=== PATIENT | female | born 1950 | race Caucasian/White ===

== ENCOUNTER 2018-11-09 17:42 | Emergency (ER) | payer BC, MEDICARE ==
--- NOTE | 2018-11-09 18:23 | EDM.PDOC ---
ED HPI GENERAL MEDICAL PROBLEM - General Chief Complaint: Gastrointestinal Problem Stated Complaint: MEDICAL [facility] Time Seen by Provider: 11/09/18 18:21 Source of Information: Reports: Patient History Limitations: Reports: No Limitations - History of Present Illness INITIAL COMMENTS - FREE TEXT/NARRATIVE: pt arrived by ambulance with marked vertigo and vomiting. She has never experienced this in the past. She does not have a headache. She got up this am with this. Onset: Today, Sudden Duration: Hour(s): Location: Reports: Head Associated Symptoms: Reports: Nausea/Vomiting, Weakness - Related Data Allergies Allergy/AdvReac Type Severity Reaction Status Date / Time gabapentin [From Neurontin] Allergy Cannot Verified 06/01/14 08:05 Remember Home Meds: Home Meds NK [No Known Home Meds] 11/09/18 [History] Past Medical History [employer] History: Reports: - Past Surgical History HEENT Surgical History: Reports: Tonsillectomy GI Surgical History: Reports: Appendectomy Female Surgical History: Reports: Section, Tubal Ligation Social & Family History - Tobacco Use Smoking Status *Q: Never Smoker - Caffeine Use Caffeine Use: Reports: None - Recreational Drug Use Recreational Drug Use: No ED ROS GENERAL - Review of Systems Review Of Systems: See Below Constitutional: Reports: Weakness HEENT: Reports: Vertigo Respiratory: Reports: No Symptoms Cardiovascular: Reports: No Symptoms Endocrine: Reports: No Symptoms GI/Abdominal: Reports: Nausea, Vomiting : Reports: No Symptoms Musculoskeletal: Reports: No Symptoms Skin: Reports: No Symptoms Neurological: Reports: No Symptoms Psychiatric: Reports: No Symptoms ED EXAM, GI/ABD - Physical Exam Exam: See Below Text/Narrative:: pt arrived with marked vertigo. She states this came on suddenly this am. She has been vomiting all day. She states everytime she moved the vertigo was severe. She has not had this in the past. Exam Limited By: No Limitations General Appearance: Alert, Anxious, Moderate Distress, Other (pupils equal and reactive. She had some mild latweral nystagmus. ) Ears: Normal TMs Nose: Normal Inspection Throat/Mouth: Normal Inspection Head: Atraumatic Neck: Normal Inspection Respiratory/Chest: No Respiratory Distress GI/Abdominal Exam: Soft, Non-Tender (Female) Exam: Deferred Rectal (Female) Exam: Deferred Back Exam: Normal Inspection Extremities: Normal Inspection Neurological: Alert, Oriented, Normal Cognition Course - Vital Signs Last Recorded V/S: Last Vital Signs Temp 35.9 C 11/09/18 18:05 Pulse 62 11/09/18 20:16 Resp 16 11/09/18 23:14 BP 168/73 H 11/09/18 23:14 Pulse Ox 98 11/09/18 23:14 - Orders/Labs/Meds Labs: Laboratory Tests 11/09/18 11/09/18 11/09/18 Range/Units 18:26 18:26 20:37 WBC 9.3 (4.5-11.0) K/uL RBC 5.20 (3.30-5.50) M/uL Hgb 14.6 (12.0-15.0) g/dL Hct 44.0 (36.0-48.0) % MCV 85 (80-98) fL MCH 28 (27-31) pg MCHC 33 (32-36) % Plt Count 223 (150-400) K/uL Neut % (Auto) 87 H (36-66) % Lymph % (Auto) 10 L (24-44) % [place] % (Auto) 3 (2-6) % Eos % (Auto) 0 L (2-4) % Baso % (Auto) 0 (0-1) % Sodium 138 L (140-148) mmol/L Potassium 3.9 (3.6-5.2) mmol/L Chloride 107 (100-108) mmol/L Carbon Dioxide 19 L (21-32) mmol/L Anion Gap 15.9 H (5.0-14.0) mmol/L BUN 16 (7-18) mg/dL Creatinine 0.9 (0.6-1.0) mg/dL Est Cr Clr Drug Dosing 49.49 mL/min Estimated GFR (MDRD) > 60 (>60) Glucose 159 H (74-106) mg/dL Calcium 8.7 (8.5-10.1) mg/dL Total Bilirubin 0.5 (0.2-1.0) mg/dL AST 22 (15-37) U/L ALT 29 (12-78) U/L Alkaline Phosphatase 102 (46-116) U/L Total Protein 6.2 L (6.4-8.2) g/dL Albumin 3.1 L (3.4-5.0) g/dL Globulin 3.1 (2.3-3.5) g/dL Albumin/Globulin Ratio 1.0 L (1.2-2.2) Urine Color Yellow Urine Appearance Clear Urine pH 6.0 (4.5-8.0) Ur Specific [place] 1.015 (1.008-1.030) Urine Protein Trace (NEGATIVE) mg/dL Urine Glucose (UA) Normal (NEGATIVE) mg/dL Urine Ketones 50 H (NEGATIVE) mg/dL Urine Occult Blood Negative (NEGATIVE) Urine Nitrite Negative (NEGATIVE) Urine Bilirubin Negative (NEGATIVE) Urine Urobilinogen Normal (NORMAL) mg/dL Ur Leukocyte Esterase Negative (NEGATIVE) Urine RBC 0-5 (0-5) Urine WBC 0-5 (0-5) Ur Epithelial Cells Few Amorphous Sediment Few Urine Bacteria Not seen Urine Mucus Rare Meds: Medications Discontinued Medications Generic Name Dose Route Start Last Admin Trade Name Freq PRN Reason Stop Dose Admin Sodium Chloride 1,000 mls @ 999 mls/hr 11/09/18 18:30 11/09/18 20:37 Normal Saline IV 999 mls/hr ASDIRECTED REGINA Administration Sodium Chloride 1,000 mls @ 500 mls/hr 11/09/18 19:15 11/09/18 19:14 Normal Saline IV 500 mls/hr ASDIRECTED REGINA Administration Sodium Chloride 1,000 mls @ 250 mls/hr 11/09/18 22:45 Normal Saline IV ASDIRECTED REGINA Sodium Chloride 1,000 mls @ 25 mls/hr 11/09/18 23:30 Normal Saline IV ASDIRECTED REGINA Meclizine HCl 25 mg 11/09/18 18:20 11/09/18 19:05 Antivert PO 11/09/18 18:21 25 mg ONETIME ONE Administration Meclizine HCl 25 mg 11/09/18 22:44 11/09/18 23:17 Antivert PO 11/09/18 22:45 25 mg ONETIME ONE Administration Ondansetron HCl 4 mg 11/09/18 18:20 11/09/18 18:56 Zofran IVPUSH 11/09/18 18:21 Not Given ONETIME ONE - Re-Assessments/Exams Free Text/Narrative Re-Assessment/Exam: 11/09/18 19:47 pt had mild elevation in her bs. She has good looking lab otherwise. She had a neg head scan. She is doing better with the vertigo and nausea. 11/10/18 00:26 pt is feeling much better. She has been up and down to the bathroom. -- she has not experienced vertigo. Departure - Departure Time of Disposition: 01:55 Disposition: Home, Self-Care 01 Condition: Fair Clinical Impression: Inner ear dysfunction - Discharge Information Instructions: Vertigo, [id number] Referrals: Zully Gutierrez PA-C [Primary Care Provider] - Forms: ED Department Discharge Care Plan Goals: low activity for the next 2 days, antivert 25 tid regularly for the next 2 days. follow up with her own provider.
[2018-11-09] MEDS: Ondansetron 4 MG/2 ML SDV IVPUSH ONE (18:56)
[2018-11-09] MEDS: Meclizine 25 MG Tab PO ONE ×2 (19:05→23:17)
--- NOTE | 2018-11-09 19:11 | CRLCT ---
INDICATION: Vertigo. TECHNIQUE: CT Head without contrast. COMPARISON: None. FINDINGS: CSF spaces: Within normal limits for age. Brain parenchyma: The packer-white differentiation is normal. No sign of mass, hemorrhage, or midline shift. Skull base and calvarium: The visualized paranasal sinuses and mastoid air cells are clear. The visualized orbits are grossly unremarkable. No skull fractures. Some debris in the external auditory canals bilaterally. No fluid in the mastoids. IMPRESSION: Unremarkable noncontrast head CT. Please note that all CT scans at this facility use dose modulation, iterative reconstruction, and/or weight-based dosing when appropriate to reduce radiation dose to as low as reasonably achievable. Dictated by Joe Earl MD @ Nov 09 2018 7:09PM Signed by Dr. Joe Earl @ Nov 09 2018 7:10PM
[2018-11-09] MEDS: Sodium Chloride 0.9% 1,000 ML IV SCH ×2 (19:14→20:37)
[2018-11-09] MEDS ORDERED: Sodium Chloride 0.9% 1,000 ML IV SCH ×2 (22:45→23:30)
== END 2018-11-10 01:53 | disposition home or self-care (01) ==
LOC: JP.ED 17:42
DX: H83.2X9 Labyrinthine dysfunction, unspecified ear (principal); Z88.8 Allergy status to other drugs, medicaments and biological substances
CPT/HCPCS: 36415; 70450; 80053; 81001; 85025; 96360; 96361; 99285; A9270; J7030